=== PATIENT | female | born 2000 | race Two or more races ===

== ENCOUNTER → 2020-04-02 | Outpatient (CLI) | payer BC ==
[2020-04-02 08:52] LABS: Basophils # (auto) 0 10 ^3/uL (0-0.2); Basophils % (auto) 0.2 % (0.0-2.0); Eosinophils # (auto) 0.1 10 ^3/uL (0-0.8); Eosinophils % (auto) 1.2 % (0.0-7.0); Hematocrit 42.6 % (36.0-46.0); Lymphocytes # (auto) 2.4 10 ^3/uL (0.4-5.4); Lymphocytes % (auto) 29.9 % (10.0-50.0); Mean Corpuscular Hemoglobin 27.8 pg (28.0-32.0); Mean Corpuscular Hgb Conc. 32.8 g/dL (32.0-36.0); Mean Corpuscular Volume 84.9 fL (80.0-100.0); Monocytes # (auto) 0.8 10 ^3/uL (0-1.3); Monocytes % (auto) 9.6 % (0.0-12.0); Neutrophils # (auto) 4.8 10 ^3/uL (1.6-8.6); Neutrophils % (auto) 59.1 % (37.0-80.0); Platelet Count (auto) 289 10^3/uL (140-450); Red Blood Cells 5.02 10^6/uL (4.0-5.20); Red Cell Distribution Width 12.7 % (11.8-14.3); White Blood Cell 8.1 10^3/uL (4.4-10.8)
[2020-04-02 09:57] LABS: Albumin 3.9 g/dL (3.4-5.0); Calcium 9.1 mg/dL (8.5-10.1); Potassium 4.3 mmol/L (3.5-5.1)
[2020-04-02 10:04] LABS: BUN/Creatinine Ratio 15.9; Bilirubin, Total 0.4 mg/dL (0.2-1.0); Total Protein 8.1 g/dL (6.4-8.2)
[2020-04-02 10:07] LABS: Leuteinizing Hormone 13.9 IU/L; Prolactin 7.02 ng/mL (2.8-29.2)
[2020-04-02 10:08] LABS: Follicle Stimulating Hormone 7.1 IU/L (SEE BELOW)
== END | disposition home or self-care (01) ==
LOC: LAB 08:29
PROVIDERS: ATTEND Student in an Organized Health Care Education/Training Program
DX: Z00.00 Encounter for general adult medical examination without abnormal findings (principal); N91.1 Secondary amenorrhea; Z83.3 Family history of diabetes mellitus; Z68.36 Body mass index [BMI] 36.0-36.9, adult
CPT/HCPCS: 36415; 80053; 80061; 83001; 83002; 83036; 84146; 84443; 85025

== ENCOUNTER → 2020-04-09 | Outpatient (CLI) | payer BC | END | disposition home or self-care (01) | LOC: LAB 15:42 | PROVIDERS: ATTEND Student in an Organized Health Care Education/Training Program | DX: E03.9 Hypothyroidism, unspecified (principal) | CPT/HCPCS: 36415; 84439; 84443; 86376 ==

== ENCOUNTER → 2020-05-27 | Outpatient (CLI) | payer BC | END | disposition home or self-care (01) | LOC: LAB 14:12 | PROVIDERS: ATTEND Student in an Organized Health Care Education/Training Program | DX: E03.9 Hypothyroidism, unspecified (principal) | CPT/HCPCS: 36415; 84439; 84443 ==

== ENCOUNTER 2020-07-17 17:03 | Emergency (ER) | payer BC ==
[~2020-07-17] VITALS: Ht 157.5 cm; Wt 90.7 kg
[2020-07-17 17:13] VITALS: BP 137/83
[2020-07-17 19:36] LABS: Basophils # (auto) 0 10 ^3/uL (0-0.2); Basophils % (auto) 0.1 % (0.0-2.0); Eosinophils # (auto) 0.1 10 ^3/uL (0-0.8); Eosinophils % (auto) 0.6 % (0.0-7.0); Hemoglobin 13.2 g/dL (12.2-16.2); Lymphocytes # (auto) 2.7 10 ^3/uL (0.4-5.4); Lymphocytes % (auto) 28.7 % (10.0-50.0); Mean Corpuscular Hemoglobin 27.3 pg (28.0-32.0); Mean Corpuscular Hgb Conc. 33.1 g/dL (32.0-36.0); Mean Corpuscular Volume 82.6 fL (80.0-100.0); Monocytes # (auto) 0.7 10 ^3/uL (0-1.3); Monocytes % (auto) 6.8 % (0.0-12.0); Neutrophils # (auto) 6.1 10 ^3/uL (1.6-8.6); Neutrophils % (auto) 63.8 % (37.0-80.0); Platelet Count (auto) 309 10^3/uL (140-450); Red Blood Cells 4.85 10^6/uL (4.0-5.20); Red Cell Distribution Width 12.3 % (11.8-14.3); White Blood Cell 9.5 10^3/uL (4.4-10.8)
[2020-07-17 19:39] LABS: Albumin 3.9 g/dL (3.4-5.0); Calcium 8.8 mg/dL (8.5-10.1); Potassium 3.6 mmol/L (3.5-5.1)
[2020-07-17 19:41] LABS: BUN/Creatinine Ratio 14.3
[2020-07-17 19:44] LABS: Bilirubin, Total 0.3 mg/dL (0.2-1.0); Total Protein 8.3 g/dL (6.4-8.2)
== END 2020-07-17 23:30 | disposition home or self-care (01) ==
LOC: ER 17:03
DX: K52.9 Noninfective gastroenteritis and colitis, unspecified (principal); K21.9 Gastro-esophageal reflux disease without esophagitis
CPT/HCPCS: 36415; 74176; 76705; 80053; 85025

== ENCOUNTER → 2020-09-24 | Outpatient (CLI) | payer BC | END | disposition home or self-care (01) | LOC: LAB 10:31 | PROVIDERS: ATTEND Student in an Organized Health Care Education/Training Program | DX: E03.9 Hypothyroidism, unspecified (principal) | CPT/HCPCS: 36415; 84439; 84443 ==

== ENCOUNTER → 2020-11-22 | Outpatient (CLI) | payer BC | END | disposition home or self-care (01) | LOC: LAB 10:51 | PROVIDERS: ATTEND Student in an Organized Health Care Education/Training Program | DX: M25.50 Pain in unspecified joint (principal) | CPT/HCPCS: 36415; 84550; 85652; 86225; 86235 ==